=== PATIENT | male | born 1970 ===

== ENCOUNTER 2017-09-08 16:26 | Emergency (ER) | payer OTHER, SELFPAY ==
[2017-09-08 16:37] VITALS: BP 144/94; PULSE 95; RESP 20; TEMP 97.6; O2SAT 97
--- NOTE | 2017-09-08 17:24 | C.PDOC ---
History Of Present Illness 47yo male, comes to ER with complaints of a vesicular rash to his anterior forearms, spreading to his anterior chest and neck. He reports the rash is pruritic but denies any fevers, or shortness of breath. He also denies any known exposure to sick children. Patient offers no other medical complaints. Time Seen by Provider: 09/08/17 16:43 Chief Complaint (Nursing): Abnormal Skin Integrity History Per: Patient History/Exam Limitations: no limitations Onset/Duration Of Symptoms: Days Current Symptoms Are (Timing): Still Present Location Of Injury: Right: Arm, Left: Arm, Anterior: Arm, Chest, Neck Quality Of Symptoms: Itching Additional History Per: Patient Past Medical History Reviewed: Historical Data, Nursing Documentation, Vital Signs Vital Signs: Last Vital Signs Temp 97.6 F 09/08/17 16:33 Pulse 95 H 09/08/17 16:33 Resp 20 09/08/17 16:33 BP 144/94 H 09/08/17 16:33 Pulse Ox 97 09/08/17 17:36 - Medical History PMH: No Chronic Diseases Denies: Arthritis, Asthma, Atrial Fibrillation, CHF, COPD, Diabetes (Pre diabetic), HTN, Hypercholesterolemia, Seizures Surgical History: No Surg Hx Denies: CABG, Pacemaker Family History: Denies: CAD - Social History Hx Alcohol Use: Yes Hx Substance Use: No - Immunization History Hx Tetanus Toxoid Vaccination: Yes Hx Influenza Vaccination: Yes Hx Pneumococcal Vaccination: Yes Review Of Systems Constitutional: Negative for: Fever, Chills Respiratory: Negative for: Shortness of Breath Skin: Positive for: Rash Physical Exam - Physical Exam Appears: Non-toxic, No Acute Distress Skin: Dry, Rash (few vesicles and few erythematous macules noted to bilateral arms, anterior chest and neck) Neck: Normal ROM, Supple Chest: Symmetrical Cardiovascular: Rhythm Regular Respiratory: Normal Breath Sounds Neurological/Psych: Oriented x3 ED Course And Treatment O2 Sat by Pulse Oximetry: 97 (RA) Pulse Ox Interpretation: Normal Medical Decision Making Medical Decision Making: Impression: Vesicular rash Plan: -- Benadryl 25mg PO 1730 Patient seen and evaluated by Dr. Lucia who agrees with plan of treatment. Patient given prescriptions for Benadryl and calamine lotion. Instructed to follow up with PMD in 2-3 days. Disposition Counseled Patient/Family Regarding: Diagnosis, Need For Followup, Rx Given - Disposition Disposition: HOME/ ROUTINE Disposition Time: 17:23 Condition: GOOD Additional Instructions: Please take Benadryl for itch- makes you sleepy so o driving or operating machinery. Also can apply calamine lotion to itchy areas 2-3 times a day.Follow up with your doctor in a few days. Return to ER for any worse problems. Prescriptions: Calamine/Zinc Oxide [Calamine Lotion] 1 applic TOP BID #1 bottle DiphenhydrAMINE [Benadryl] 25 mg PO Q6 #30 cap Instructions: Skin Rash (DC) Forms: [employer] (Sami), General Discharge Instructions Print Language: HONG KONGER - Clinical Impression Clinical Impression: Rash and nonspecific skin eruption - PA / [employer] / Resident Statement MD/DO has reviewed & agrees with the documentation as recorded. - Scribe Statement The provider has reviewed the documentation as recorded by the Tim Thao Provider Attestation: All medical record entries made by the Tim were at my direction and personally dictated by me. I have reviewed the chart and agree that the record accurately reflects my personal performance of the history, physical exam, medical decision making, and the department course for this patient. I have also personally directed, reviewed, and agree with the discharge instructions and disposition.
== END 2017-09-08 17:37 | disposition home or self-care (01) ==
LOC: C.ER 16:26
DX: R21 Rash and other nonspecific skin eruption (principal)